=== PATIENT | female | born 1970 | race African-American/Black ===

== ENCOUNTER 2017-10-25 09:08 | Inpatient (IN) | payer MEDICARE, MEDICAID ==
[2017-10-25] MEDS ORDERED: Ondansetron HCl/PF 4 MG/2 ML Vial ONE ×2 (09:24→17:14)
[2017-10-25] MEDS ORDERED: CEFAZOLIN/Water 2 GM/20 ML SYRINGE SLOW IVP SCH ×2 (10:00→10:30)
[2017-10-25 10:01] LABS: ALT (SGPT) 26 U/L (8-55); AST (SGOT) 22 U/L (5-34); Albumin 4.2 g/dL (3.5-5.0); Alkaline Phosphatase 109 U/L (40-150); Anion Gap 12 mmol/L (10-20); BUN (Urea Nitrogen) 14 mg/dL (7.0-18.7); Bilirubin, Total 0.2 mg/dL (0.2-1.2); Calc. Creatinine Clearance 0 mL/min (70-130); Calcium 9.2 mg/dL (7.8-10.44); Carbon Dioxide 28 mmol/L (22-29); Chloride 102 mmol/L (98-107); Estimated GFR-MDRD 89; Globulin 3.9 g/dL (2.4-3.5); Glucose 117 mg/dL (70-105); Potassium 4.7 mmol/L (3.5-5.1); Protein, Total 8.1 g/dL (6.0-8.3); Sodium 137 mmol/L (136-145)
[2017-10-25] MEDS ORDERED: Hydrocortisone Sod Succ/PF 100 mg/2 ml Vial ONE (10:12)
[2017-10-25] MEDS ORDERED: HYDROmorphone 0.5 MG/0.5 ML SYRINGE ONE ×6 (10:15→18:04)
--- NOTE | 2017-10-25 10:23 | RAD ---
AP PELVIS: Indication: Fall with pelvic pain. Comparison: None. FINDINGS: No displaced pelvic fracture is evident. Visualized aspects of the proximal femurs are within normal limits. The right proximal femur is incompletely included within the field of view. IMPRESSION: No acute osseous abnormality. POS: [facility]
--- NOTE | 2017-10-25 10:27 | CT ---
CT BRAIN WITHOUT CONTRAST: Date: 10/25/17 HISTORY: Level II trauma. FINDINGS: No evidence of acute infarct, hemorrhage, midline shift, or abnormal extra-axial fluid collections ar e seen. The ventricular size is appropriate and the basilar cisterns are patent. The bony calvarium i s intact. The visualized paranasal sinuses and mastoid air cells are well aerated. There is mucosal t hickening and polyp/mucus retention cyst at the floor of the left maxillary sinus. IMPRESSION: No CT evidence of acute intracranial process. Findings called over the telephone to ER physician, Dr. Boston Hernández at 0956 hours. CODE CR. POS: [facility]
--- NOTE | 2017-10-25 10:28 | CT ---
CT CERVICAL SPINE WITH CORONAL AND SAGITALL REFORMATIONS: History: Level II trauma. Neck pain. FINDINGS: There are post op changes of anterior spinal fusion with plate and screws at C6-7 levels in good posi tion and alignment. No acute fracture or subluxation identified. Findings were discussed over the telephone with ER physician, Dr. Boston Chapman, at 9:59 a.m. POS: [facility]
--- NOTE | 2017-10-25 10:34 | RAD ---
TWO VIEWS OF THE RIGHT FORELEG: Indication: Tripped and fell. Comparison: None. FINDINGS: There is a spiral fracture involving the mid shaft of the right tibia with posterior displacement of the distal fracture fragment one-half shaft width. There is also right patellar rotation of the dista l fracture fragment in relationship to the proximal tibia approximately 90 degrees. There is also nguyễn e slight medial angulation of the distal fracture fragment at the fracture site. There is associated mildly displaced transverse fracture involving the midshaft of the fibula with displacement of the di stal fracture fragment laterally and posteriorly one-half shaft width. There is soft tissue prominenc e seen surrounding the fracture site. There is suggestion of some soft tissue gas along the anterior and lateral aspect of the right mid foreleg suspicious for an open injury. No additional acute fractu re is evident. IMPRESSION: Findings suspicious for open, mild to moderately displaced foreleg fracture. POS: [facility]
--- NOTE | 2017-10-25 10:56 | CON ---
DATE OF CONSULTATION: 10/25/2017 CONSULTING PHYSICIAN: Dr. Parth Stoll We were asked by the ER and Trauma to see the patient. HISTORY: She was in her normal state of health this morning when she was walking through her house, t ripped and sustained an open midshaft right tib-fib fracture. The patient is in significant pain. S he is quite anxious. She recalls the incident, did not hit her head or lose any consciousness. Curr ently, she has gotten 2 grams of Ancef at the ER. We are currently, about ready to splint her. She has good sensations in that right lower extremity. She does have multiple health issues. I spoke wi th Trauma regarding surgical intervention and they are okay with us going this afternoon. She did ea t at 7:00 a.m. this morning and she will be our third case this afternoon. PAST MEDICAL HISTORY: Positive for hypertension, some neurological disease. She has had a CVA and l upus, Raynaud's, osteoarthritis, neuropathy, knee pain. PAST SURGICAL HISTORY: Tubal ligation, back surgery, bilateral bunions and clavicle surgery. PSYCHIATRIC HISTORY: Depression. FAMILY HISTORY: Noncontributory. ALLERGIES: None. CURRENT MEDICATIONS: She takes Plaquenil, gabapentin, Valium, tramadol, prednisone, amlodipine, aspi rin. She is unsure if this is all her medications. We are trying to track down her medication list from her pharmacy. Trauma is working on that currently. REVIEW OF SYSTEMS: The patient denies any shortness of breath, chest pain. No bowel or bladder issu es. Her only complaint currently is the significant pain in the right lower extremity. PHYSICAL EXAMINATION: GENERAL: Well-nourished, well-developed, mildly obese female resting in bed in mild distress. Speec h clear. Answers questions appropriately. HEENT: Normal exam. NECK: Supple, trachea midline. EXTREMITIES: Upper extremities, full size, shape, symmetry, normal bulk and tone. Movements are equ al as are strengths. Left lower extremity without any abnormal findings. She does have a noted scar over her great toe region from bunion as she does on the left side also. Right lower extremity obvi ous opening to mid moore, it has been reduced by EMT transports. She has good sensations. DP, PT pul ses are intact. She is moving bilateral feet well. ASSESSMENT: 1. Multiple health issues. 2. Open right tibia fracture. PLAN: I spoke with patient. We plan on doing the tibial nail today. She has already gotten 2 grams of Ancef. I went over the risks and benefits of surgery. The patient was very panicked about talki ng about cardiac, blood clots, respiratory issues, but she understands the need to go forth with surg casimiro and she has given verbal authorization. We will again go over the risks and benefits of surgery prior to surgery, so she can feel a little more comfortable and have anesthesia talked to her. The lucy holman has been splinted by the emergency room. We will get her set up for surgery and get her posted in the OR. She has currently eaten at 7, but we will keep her n.p.o. and antibiotics on hold to the OR .
[2017-10-25 11:25] LABS: Bilirubin Negative (Negative); Blood, Urine Negative (Negative); Glucose, Urine (Dipstick) Negative (Negative); Leukocyte Negative (Negative); Nitrite Negative (Negative); Protein, Urine (Dipstick) Negative (Neg-Trace); Specific Gravity, Urine 1.025 (1.005-1.030); Urobilinogen 0.2 mg/dL (0.2-1.0)
[2017-10-25 11:28] LABS: Clarity Clear (Clear); Pregnancy Test - Urine (BHCG) Negative (Negative); Pregu Control Background? CLEAR/WHITE (CLR/WHITE); Pregu Control Bar Appear? YES (CONTROL BAR); Specific Gravity 1.025 (1.002-1.036)
[2017-10-25] MEDS ORDERED: Dextrose 5% in Water 1,000 ML IV PRN (11:48)
[2017-10-25] MEDS ORDERED: Ondansetron HCl/PF 4 MG/2 ML Vial IVP PRN ×2 (11:48→20:12)
[2017-10-25] MEDS ORDERED: Dextrose 50% Abboject 50 ML SYRINGE SLOW IVP PRN (11:48)
[2017-10-25 11:55] LABS: #Lymphocytes 1.2 thou/uL (1.20-3.40); #Monocytes 0.4 thou/uL (0.11-0.59); #Neutrophils 5.3 thou/uL (1.40-6.50); %Basophils 0.1 % (0.0-1.0); %Eosinophils 0.2 % (0.0-10.0); %Lymphocytes 16.9 % (21.0-51.0); %Monocytes 5.1 % (0.0-10.0); %Neutrophils 77.7 % (42.0-75.0); Hemoglobin 13.7 g/dL (12.0-16.0); Mean Corpuscular HGB CONC 31.2 g/dL (32.0-36.0); Mean Corpuscular Hemoglobin 29.8 pg (27.0-31.0); Mean Corpuscular Volume 95.5 fl (81.0-99.0); Mean Platelet Volume 9.5 fL (7.4-10.4); Platelet Count 198 thou/uL (130-400); RBC Distribution Width 13.4 % (11.5-14.5); Red Blood Cell (RBC) Count 4.61 mill/uL (4.20-5.40); White Blood Cell (WBC) Count 6.8 thou/uL (4.8-10.8)
[2017-10-25] MEDS ORDERED: Ketorolac Tromethamine 30 MG/ML VIAL ONE (12:41)
[2017-10-25] MEDS ORDERED: Ketorolac Tromethamine 30 MG/ML VIAL IVP PRN (12:59)
[2017-10-25 13:01] LABS: PTT 24.2 SEC (22.9-36.1); Prothrombin Time 12.9 SEC (12.0-14.7)
--- NOTE | 2017-10-25 14:11 | HP ---
DATE OF ADMISSION: 10/25/2017 REQUESTING PHYSICIAN: Dr. Hernández, ER. ADMITTING PHYSICIAN: Dr. Collins, Trauma. CONSULTING PHYSICIAN: Dr. Stoll, Orthopedics. HISTORY OF PRESENT ILLNESS: The patient is a 46-year-old female who was in her usual state of health this morning when she reports she was ambulating in her house when her feet got tangled up in some c ords going to an electric blanket. She then had a fall there on her living room floor. She immediat renita felt pain in her right lower leg. She was transported to the [facility] via EMS. Workup in the emergency department identified a right open midshaft tib/fib fracture. She had no other identified injuries. She complained of no other pain. She reports the pain is constant. She does not have any report of loss of sensation in her right lower extremity. Trauma Services was consulted for admission and management. Dr. Stoll, Orthopedics has been consulted for management of fracture. At the time of evaluation in the ED, she was also being evaluated by PA from Orthopedi c Surgery. She reports the pain is constant and exacerbated by movement. The pain is relieved sligh tly with administration of IV narcotic analgesia. PAST MEDICAL HISTORY: 1. Hypertension. 2. Lupus. 3. Raynaud's syndrome. 4. Osteoarthritis. 5. TIAs in 2016. 6. Peripheral neuropathy. PAST SURGICAL HISTORY: 1. Back surgery in 1998. 2. Left foot bunion surgery. 3. Bilateral tubal ligation. SOCIAL HISTORY: The patient denies alcohol, drug or tobacco use. ALLERGIES: No known drug allergies. CURRENT MEDICATIONS: Patient reported medications are: 1. Amlodipine 10 mg daily. 2. Prednisone 20 mg daily. 3. Chloroquine, unknown dosage. 4. Valium, unknown dosage. 5. Tramadol, unknown dosage. 6. Gabapentin, unknown dosage. LABORATORY STUDIES: Hematology: WBC 6.8, RBC 4.61, hemoglobin 13.7, hematocrit 44.1, platelets 198, 000. Chemistry: Sodium 137, potassium 4.7, chloride 102, carbon dioxide 28, BUN 14, creatinine 0.83 , glucose 117. DIAGNOSTIC IMAGING: Right tibia and fibula x-ray, open moderately displaced tib/fib fracture. EKG interpretation, normal sinus rhythm. REVIEW OF SYSTEMS: Constitutional: Negative for fever, chills, weight loss, general malaise. HEENT : No complaints. Cardiovascular: The patient reports Raynaud's syndrome. No chest pain, no palpit ations, no syncope. Respiratory: Denies cough, shortness of breath. Gastrointestinal: Denies abdo olman pain, constipation, nausea, vomiting or diarrhea. Musculoskeletal: Reports fall with right le g injury. Reports open right leg fracture. Skin: Denies rashes or injury. Neurologic: Denies diz ziness, focal weakness. Rheumatology: Reports treatment for systemic lupus. Hemo/lymphatic: Negat guillermo. Psychiatric: Denies anxiety or depression. PHYSICAL EXAMINATION: VITAL SIGNS: Blood pressure 145/96, pulse 85, respirations 18, pain 8/10, O2 sat 96% on room air. CONSTITUTIONAL: Well-developed, well-nourished female, lying on bed, in no acute distress. HEENT: Atraumatic, normocephalic. Trachea midline. No pain to posterior neck. RESPIRATORY: Bilateral breath sounds clear to auscultation. No respiratory distress. CARDIOVASCULAR: Regular rate and rhythm. Heart sounds normal. EKG with normal sinus rhythm. ABDOMEN: Soft, nontender, nondistended. No masses. Bowel sounds normal. EXTREMITIES: Bilateral upper extremities within normal limits. Left lower extremity within normal l imits. Cap refill brisk. Pulses 2+. Right lower extremity, mid shaft open fracture. 2+ pedal puls es. Cap refill brisk. No loss of sensation. NEUROLOGIC: GCS 15. Awake, alert, oriented x3. PSYCHIATRIC: Normal mood and affect. ASSESSMENT AND PLAN: 1. Status post ground level fall. 2. Right mid shaft open tib/fib fracture. 3. Acute traumatic pain. 4. History of lupus. 5. History of hypertension. 6. History of Raynaud's syndrome. PLAN: 1. Admit to surgical floor by Trauma Services. 2. Consult Orthopedics. Discussed with Orthopedics PA. Plan is to take patient to OR later today. 3. N.p.o. IV fluids. 4. IV analgesia for pain control. 5. PT, OT consult after OR with Orthopedic limitation. 6. Rehab referral will be made. 7. Chemical DVT prophylaxis when okay with Orthopedics. 8. PUD prophylaxis. 9. Nursing to confirm with outside pharmacy correct current medications. The patient was seen and examined with Dr. Collins, attending trauma surgeon, who agrees with the asses sment and plan.
[2017-10-25] MEDS: Sodium Chloride 0.9% 1,000 ML IV SCH ×2 (15:03→21:31)
[2017-10-25] MEDS ORDERED: Midazolam HCl 2 mg/2 ml Vial ONE (16:22)
[2017-10-25 16:24] VITALS: BMI 40.3
[2017-10-25] MEDS ORDERED: Propofol 200 MG/20 ML VIAL ONE (17:14)
[2017-10-25] MEDS ORDERED: Metoprolol Tartrate 5 MG/5 ML VIAL ONE ×2 (17:14→20:24)
[2017-10-25] MEDS ORDERED: Lidocaine 1% PF 5 ML VIAL ONE (17:14)
[2017-10-25] MEDS ORDERED: Fentanyl 100 MCG/2 ML VIAL ONE ×3 (18:06→20:39)
[2017-10-25] MEDS ORDERED: Ketamine 50 MG/ML VIAL ONE (18:25)
[2017-10-25] MEDS ORDERED: CEFAZOLIN/Water 2 GM/20 ML SYRINGE ONE (18:31)
[2017-10-25] MEDS: Acetaminophen 1,000 MG in Premix Bag 1 BAG IVPB SCH ×2 (18:32→23:36)
[2017-10-25] MEDS ORDERED: Neomycin-Polymyxin 1 ML AMP ONE (18:59)
[2017-10-25] MEDS ORDERED: Promethazine HCl 25 MG/ML VIAL SLOW IVP PRN (20:12)
[2017-10-25] MEDS ORDERED: Promethazine HCl 25 MG/ML VIAL IM PRN (20:12)
[2017-10-25] MEDS ORDERED: HYDROmorphone 2 MG/ML VIAL SLOW IVP PRN (20:12)
--- NOTE | 2017-10-25 20:25 | RAD ---
FRONTAL AND LATERAL INTRAOPERATIVE IMAGING OF RIGHT TIBIA AND FIBULA 10/25/17 HISTORY: Fracture status post ORIF. FINDINGS: Six intraoperative images are provided. Images demonstrate a nondisplaced fracture involving the mid shaft right fibula. A comminuted tibial fracture is present in the mid shaft/distal shaft region, tra versed by an intramedullary omar with distal and proximal interlocking screws. IMPRESSION: Fractures of the right tibia and fibula status post ORIF as above. POS: [facility]
[2017-10-25] MEDS ORDERED: Pregabalin 75 MG CAP PO SCH (21:00)
[2017-10-25] MEDS ORDERED: Gabapentin 300 MG CAP PO SCH (21:00)
[2017-10-25] MEDS ORDERED: traMADol HCl 50 MG TAB PO SCH (21:00)
--- NOTE | 2017-10-25 21:00 | OP ---
DATE OF OPERATION: 10/25/2017 PROCEDURE PERFORMED: 1. Right open tibia fracture, irrigation and debridement. 2. Right tibia intramedullary nail. PREOPERATIVE DIAGNOSIS: Right grade 2 open mid shaft tibia and fibula fracture. POSTOPERATIVE DIAGNOSIS: Right grade 2 open mid shaft tibia and fibula fracture. COMPLICATIONS: None. ESTIMATED BLOOD LOSS: Minimal. SURGEON: Orion Stoll M.D. ASSISTANT SALES CENTER MANAGER: Stan Garcia PA-C. IMPLANTS: Synthes tibial intramedullary nail size 8 x 345 mm. INDICATIONS: Ms. Benitez is a 46-year-old female who fell today. She sustained an open fracture of he r tibia and fibula of the right leg. She was indicated for irrigation and debridement with intramedu llary nail fixation of the tibia to restore anatomic alignment and promote healing. Risks have been reviewed in detail. She has elected to proceed with the operation. Risks to include infection, nerv e or vascular injury, nonunion, malunion, hardware failure and others. DESCRIPTION OF PROCEDURE: Ms. Benitez was identified in the preoperative holding area. Her correct ex tremity was marked. She was carried to the operating room. She was positioned supine. General anes thesia was induced. A multidisciplinary timeout was performed. The right lower extremity was preppe d and draped in sterile fashion. She was given intravenous antibiotics. At this point, we began with irrigation and debridement of open wound. She had a 4 cm V-shaped lacer ation over the anterior tibia. We dissected down through the subcutaneous tissues to the bony level. We exposed the bony edges. These were debrided. We then thoroughly irrigated the wound and bony e dges with copious lavage. Once we had a clean bed, we trimmed the skin edges back to healthy tissue . We then applied a reduction clamp across the fracture. At this point, we began preparation for intramedullary nail. An incision was made over the knee. We dissected down through the subcutaneous tissues to the patellar tendon. A small patellar split was made. We then inserted a guidewire proximally in the tibia. We have reamed the guidewire. We then placed the ball-tip guidewire from proximal to distal. At this point, we overreamed the guidewire up to a size 9.5 mm reamer. Next, we measured for a 345 mm nail. We then placed our tibial intramedul mariajose nail from proximal to distal. Two cross lock screws were placed proximally and two cross lock s crews were placed distally. This completed the operation. We took final x-ray images. We then thor oughly irrigated and closed with 0 Vicryl suture, 2-0 Vicryl suture and nylon for the skin. A steril e dressing was applied. The patient was taken to the recovery room.
[2017-10-25] MEDS: Diazepam 5 MG TAB PO SCH (21:30)
[2017-10-25] MEDS: Famotidine/PF 20 mg/2ml Vial SLOW IVP SCH (21:31)
[2017-10-25] MEDS: traMADol HCl 50 MG TAB PO SCH (23:35)
[2017-10-26] MEDS: CEFAZOLIN/Water 2 GM/20 ML SYRINGE SLOW IVP SCH ×3 (01:44→18:18)
[2017-10-26 04:29] LABS: #Eosinphils 0.1 thou/uL (0.0-0.7); #Lymphocytes 1.6 thou/uL (1.20-3.40); #Monocytes 0.7 thou/uL (0.11-0.59); #Neutrophils 4.9 thou/uL (1.40-6.50); %Basophils 0.1 % (0.0-1.0); %Eosinophils 1.8 % (0.0-10.0); %Monocytes 9.1 % (0.0-10.0); Hemoglobin 11.3 g/dL (12.0-16.0); Mean Corpuscular HGB CONC 32.3 g/dL (32.0-36.0); Mean Corpuscular Hemoglobin 30.9 pg (27.0-31.0); Mean Corpuscular Volume 95.7 fl (81.0-99.0); Mean Platelet Volume 8.6 fL (7.4-10.4); Platelet Count 253 thou/uL (130-400); RBC Distribution Width 13.2 % (11.5-14.5); Red Blood Cell (RBC) Count 3.65 mill/uL (4.20-5.40); White Blood Cell (WBC) Count 7.3 thou/uL (4.8-10.8)
[2017-10-26] MEDS: Acetaminophen 1,000 MG in Premix Bag 1 BAG IVPB SCH (05:35)
[2017-10-26] MEDS: traMADol HCl 50 MG TAB PO SCH (05:36)
[2017-10-26] MEDS: Sodium Chloride 0.9% 1,000 ML IV SCH ×2 (05:51→12:42)
[2017-10-26] MEDS ORDERED: Ketorolac Tromethamine 30 MG/ML VIAL IVP SCH (08:00)
[2017-10-26] MEDS ORDERED: traMADol HCl 50 MG TAB PO PRN (08:18)
[2017-10-26] MEDS: Diazepam 5 MG TAB PO SCH ×3 (08:28→20:49)
[2017-10-26] MEDS: predniSONE 20 MG TAB PO SCH (08:28)
[2017-10-26] MEDS: Lisinopril 10 MG TAB PO SCH (08:28)
[2017-10-26] MEDS: Amlodipine 10 MG TAB PO SCH (08:28)
[2017-10-26] MEDS: Famotidine/PF 20 mg/2ml Vial SLOW IVP SCH (08:29)
[2017-10-26] MEDS: Ibuprofen 800 MG TAB PO SCH ×2 (08:42→15:43)
[2017-10-26] MEDS ORDERED: Acetaminophen 500 MG TAB PO SCH (09:00)
[2017-10-26] MEDS ORDERED: HYDROcodone/Acetaminophen 10/325 mg Tablet PO PRN ×3 (09:08→09:32)
[2017-10-26] MEDS ORDERED: Acetaminophen 325 MG TAB PO PRN (10:42)
[2017-10-26] MEDS ORDERED: HYDROcodone/Acetaminophen 10/325 mg Tablet PO SCH (13:00)
[2017-10-26] MEDS: HYDROcodone/Acetaminophen 10/325 mg Tablet PO SCH ×2 (14:43→20:49)
[2017-10-26] MEDS: Pregabalin 75 MG CAP PO SCH ×2 (14:44→20:48)
--- NOTE | 2017-10-26 16:35 | PRG ---
DATE OF SERVICE: 10/26/2017 ATTENDING PHYSICIAN: Dr. Robert Collins. SUBJECTIVE: The patient is a 46-year-old female who suffered a ground level fall yesterday resulting in a right open tib/fib fracture. She was taken to the OR yesterday for open reduction internal fix ation as well as irrigation and debridement. She is currently stable on the floor this morning. Mercyi yolis reporting inadequate pain control, but now reporting improved pain control after adjusting her medications. OBJECTIVE: VITAL SIGNS: Blood pressure 132/86, pulse 92, temperature 98.2, respirations 20, O2 saturation 97% o n room air. GENERAL: Morbidly obese adult female, lying in bed, in no acute distress. HEENT: Normocephalic and atraumatic. RESPIRATORY: Her breath sounds are clear to auscultation bilaterally with normal effort. CARDIOVASCULAR: She has regular rate and rhythm. Normal S1 and S2. ABDOMEN: Her abdomen is soft, obese, and nontender. Bowel sounds are normal. EXTREMITIES: She is neurovascularly intact x4. Distal pulses 2+ bilaterally. NEUROLOGIC: Her GCS is 15 this morning. She is alert and oriented x3. LABORATORY DATA: Hematology: WBC 7.3, hemoglobin 11.3, hematocrit 35.0, platelets 253. Chemistry: Sodium 137, potassium 4.7, chloride 102, bicarbonate 28, BUN 14, creatinine 0.83, glucose 117. RADIOGRAPHIC FINDINGS: There are no radiographs to review today. ASSESSMENT: 1. Status post ground level fall. 2. Right midshaft open tib/fib fracture, status post open reduction internal fixation. 3. Acute traumatic pain. 4. History of lupus, present on admission. 5. History of hypertension, present on admission. 6. History of Raynaud's syndrome, present on admission. PLAN: 1. Continue to try to optimize her pain control and give other supportive care measures as needed. 2. The patient initially reports being very reluctant to go to rehabilitation. However, she is now more open to this after having a long discussion with her. She has not been evaluated at rehab and h as agreed on the location. A referral letter has been placed. This patient was seen and examined along with Dr. Robert Collins on rounds this morning, who agrees wi th this assessment and plan.
[2017-10-26] MEDS ORDERED: Enoxaparin Sodium 40 MG/0.4 ML SYRINGE SC SCH (19:00)
[2017-10-26] MEDS: Famotidine 20 MG TAB PO SCH (20:49)
[2017-10-27] MEDS: Ibuprofen 800 MG TAB PO SCH ×4 (02:45→22:38)
[2017-10-27] MEDS: CEFAZOLIN/Water 2 GM/20 ML SYRINGE SLOW IVP SCH ×3 (02:45→18:09)
[2017-10-27] MEDS: HYDROcodone/Acetaminophen 10/325 mg Tablet PO SCH ×6 (02:46→22:39)
[2017-10-27] MEDS: Famotidine 20 MG TAB PO SCH ×2 (08:15→20:48)
[2017-10-27] MEDS: Amlodipine 10 MG TAB PO SCH (08:15)
[2017-10-27] MEDS: Diazepam 5 MG TAB PO SCH ×3 (08:15→20:49)
[2017-10-27] MEDS: Pregabalin 75 MG CAP PO SCH ×3 (08:16→20:48)
[2017-10-27] MEDS: predniSONE 20 MG TAB PO SCH (08:16)
[2017-10-27] MEDS: Lisinopril 10 MG TAB PO SCH (08:16)
--- NOTE | 2017-10-27 15:03 | PRG ---
DATE OF SERVICE: 10/27/2017 ATTENDING PHYSICIAN: Robert Collins D.O. SUBJECTIVE: The patient is a 46-year-old female who had a ground level fall 2 days ago resulting in a right open tib/fib fracture. She is postoperative day # 2 status post ORIF and I&D of the right tibia. She is currently stable on the surgical floor. Pain has been moderately controlled; however, she does report having excessive pain intermittently throughout the day. OBJECTIVE: VITAL SIGNS: Temperature 98.9, pulse 111, respirations 16, O2 sat 98% on room air, blood pressure 134/90. CONSTITUTIONAL: Well-developed and well-nourished female lying in bed in no acute distress. PULMONARY: Bilateral breath sounds clear to auscultation. No respiratory distress. CARDIOVASCULAR: Regular rate and rhythm. Heart sounds normal. ABDOMEN: Soft, nontender, and nondistended. EXTREMITIES: Splint to right lower extremity. Otherwise, extremities, atraumatic. Neurovascularly intact all extremities. Cap refill brisk. NEUROLOGIC: GCS 15. Awake, alert, oriented x3. ASSESSMENT: 1. Status post ground level fall. 2. Right midshaft open tib/fib fracture. 3. Status post open reduction and internal fixation of right open tib/fib fracture. 4. Acute traumatic pain. 5. History of lupus, present on admission. 6. History of hypertension, present on admission. 7. History of Raynaud's present on admission. PLAN: 1. Adjust hydrocodone for scheduled hydrocodone q.4 hours rather than q.6 hours. 2. Continue to mobilize with physical and occupational therapy. 3. Case management following for discharge planning. Anticipate patient will be discharged to rehab. 4. Antibiotics per Orthopedic Service. 5. Lovenox for DVT prophylaxis. 6. Pepcid for PUD prophylaxis. The patient was seen and examined with Dr. Collins who agrees with the assessment and plan. [facility]
[2017-10-27] MEDS: Enoxaparin Sodium 30 MG/0.3 ML SYRINGE SC SCH (20:49)
--- NOTE | 2017-10-27 23:57 | PRG ---
DATE OF SERVICE: 10/27/2017 SUBJECTIVE: The patient is a 47-year-old female with a medical history, postop day #2 from ORIF of r ight lower leg. The patient does report some sharp pain in that lower leg otherwise. Prior to that, she said she was doing fairly well. Not much of an appetite at this time. OBJECTIVE: VITAL SIGNS: Reviewed. It has been noted that she does have some increased tachycardia in the night . Upon my assessment, heart rate was about 110, blood pressure was normotensive, and saturation was 97% on room air, and respiratory rate was nonlabored and 18. Physical exam is unchanged otherwise as stated in daily progress note. ASSESSMENT AND PLAN: Continue care as detailed in the daily progress note. Continue to monitor. We will reassess in the a.m. The patient is on Lovenox. Discharge disposition is pending.
[2017-10-28] MEDS: CEFAZOLIN/Water 2 GM/20 ML SYRINGE SLOW IVP SCH ×3 (01:03→17:11)
[2017-10-28] MEDS: HYDROcodone/Acetaminophen 10/325 mg Tablet PO SCH ×6 (02:48→22:17)
[2017-10-28] MEDS: Pregabalin 75 MG CAP PO SCH ×3 (08:33→22:17)
[2017-10-28] MEDS: Enoxaparin Sodium 30 MG/0.3 ML SYRINGE SC SCH ×2 (08:34→22:17)
[2017-10-28] MEDS: predniSONE 20 MG TAB PO SCH (08:35)
[2017-10-28] MEDS: Lisinopril 10 MG TAB PO SCH (08:35)
[2017-10-28] MEDS: Famotidine 20 MG TAB PO SCH ×2 (08:35→22:16)
[2017-10-28] MEDS: Diazepam 5 MG TAB PO SCH ×3 (08:35→22:17)
[2017-10-28] MEDS: Ibuprofen 800 MG TAB PO SCH ×3 (08:35→22:16)
[2017-10-28] MEDS: Amlodipine 10 MG TAB PO SCH (08:35)
--- NOTE | 2017-10-28 13:38 | PRG ---
DATE OF SERVICE: 10/28/2017 ATTENDING PHYSICIAN: Robert Collins D.O. SUBJECTIVE: The patient is a 46-year-old female who had a ground level fall 3 days ago resulting in a right open tib-fib fracture. She is postoperative day #3 status post ORIF and I&D of the right tib ia. She is currently stable on the surgical floor. Pain medication was adjusted yesterday. Hydroco done was increased to q.4 hours rather than q.6 hours. This seems to have improved patient's pain. We will continue to check her during activity today to ensure that pain is well controlled. OBJECTIVE: VITAL SIGNS: Temperature 97.5, pulse 82, respirations 18, O2 sat 97% room air, blood pressure 103/71 . CONSTITUTIONAL: Well-developed, well-nourished female lying in bed in no acute distress. PULMONARY: Bilateral breath sounds clear to auscultation. No respiratory distress. CARDIOVASCULAR: Regular rate and rhythm. Heart sounds normal. ABDOMEN: Soft, nontender, and nondistended. EXTREMITIES: Splint to right lower extremity. Otherwise, extremities are atraumatic. Neurovascular ly intact all extremities. Cap refill brisk. NEUROLOGIC: GCS of 15. Awake, alert, and oriented x3. ASSESSMENT: 1. Status post ground level fall. 2. Right midshaft open tib-fib fracture. 3. Status post open reduction and internal fixation and incision and drainage of right open tib-fib fracture. 4. Acute traumatic pain. 5. History of lupus, present on admission. 6. History of hypertension, present on admission. 7. History of Raynaud's, present on admission. PLAN: 1. Hydrocodone adjusted yesterday to q.4 hours rather than q.6 hours. We will continue to monitor a nd make adjustments as necessary. 2. Continue to mobilize with physical and occupational therapy. 3. Case management following for discharge planning. Anticipate patient will be discharged to rehab in the next 1-2 days. 4. Lovenox for DVT prophylaxis. 6. Pepcid for PUD prophylaxis. The patient was seen and examined with Dr. Collins who agrees with the assessment and plan.
--- NOTE | 2017-10-29 00:53 | DIS ---
REASON FOR HOSPITALIZATION: Ground level fall with right lower extremity fracture. HOSPITAL DIAGNOSIS: Right grade 2 open midshaft tibia and fibula fracture. PROCEDURES: 1. Right open tibia fracture, irrigation and debridement. 2. Right tibia IM nail. DATE OF PROCEDURE: 10/25/2017. SURGEON: Dr. Orion Stoll. DISCHARGE CONDITION: Good. DISPOSITION: [facility]. DISCHARGE MEDICATIONS: Patient may resume all home medications. She will continue analgesia and DVT prophylaxis as ordered in the hospital. ACTIVITY ORDERS: Weightbearing as tolerated. Right lower extremity is toe- touch weightbearing only. THERAPY ORDERS: Physical and occupational therapy. DIET: Regular. FOLLOWUP: Follow up with Dr. Stoll in 2 weeks. BRIEF HISTORY OF HOSPITALIZATION: Ms. Benitez is a 47-year-old female, who was in her usual state of health when she was in her home and tripped on a cord falling into her floor. She immediately had pain in her right lower extremity. She noted an open fracture and summoned EMS. She was transported to [place] emergency department, where open tib/fib fracture was identified. She was admitted to the hospital by Trauma services. Dr. Orion Stoll, orthopedic, was consulted and took the patient to the OR for fixation of fracture. Postoperatively, she was managed on the surgical floor. She had no postoperative complications. She was able to be transitioned from IV to oral only analgesia. She was evaluated by [facility]. Mosher was discontinued on postoperative day #2. She was discharged to [facility] once acceptance was gained. She is to follow up with Dr. Stoll in 2 weeks. She may follow up with Trauma services as needed. She may resume all home medications. The patient was seen and examined with Dr. Collins, who agrees with the assessment and plan. [facility]
[2017-10-29] MEDS: HYDROcodone/Acetaminophen 10/325 mg Tablet PO SCH ×3 (03:13→11:17)
[2017-10-29] MEDS: CEFAZOLIN/Water 2 GM/20 ML SYRINGE SLOW IVP SCH (03:14)
--- NOTE | 2017-10-29 06:07 | PRG ---
DATE OF SERVICE: 10/28/2017 SUBJECTIVE: This is a 47-year-old female. She is pending discharge. At this time, she has had peg l movement, but not voided since removal of Mosher. We are awaiting to clear for discharge to [facility] rehab. OBJECTIVE: VITAL SIGNS: Reviewed, vital signs otherwise have been stable. Physical exam unchanged. ASSESSMENT AND PLAN: We will continue to await voiding trail, discharge pending rehab. We will reev aluate in a.m.
[2017-10-29 08:53] VITALS: TEMP 97.6
[2017-10-29] MEDS: Pregabalin 75 MG CAP PO SCH (09:02)
[2017-10-29] MEDS: Diazepam 5 MG TAB PO SCH (09:02)
[2017-10-29] MEDS: Ibuprofen 800 MG TAB PO SCH (09:03)
[2017-10-29] MEDS: predniSONE 20 MG TAB PO SCH (09:03)
[2017-10-29] MEDS: Enoxaparin Sodium 30 MG/0.3 ML SYRINGE SC SCH (09:03)
[2017-10-29] MEDS: Famotidine 20 MG TAB PO SCH (09:03)
[2017-10-29 12:16] VITALS: BP 101/70
[2017-10-29] MEDS: Amlodipine 10 MG TAB PO SCH (12:25)
[2017-10-29] MEDS: Lisinopril 10 MG TAB PO SCH (12:25)
--- NOTE | 2017-10-30 04:46 | DIS ---
DATE OF ADMISSION: 10/25/2017 DATE OF DISCHARGE: 10/29/2017 HOSPITAL COURSE: The patient was initially intended to discharge late yesterday evening. Her Mosher catheter was discontinued, yet the patient was unable to void. Her discharge was held overnight. Sh alena was still unable to void and Mosher catheter was replaced this a.m. This has been conveyed to the r ab liaison who reports that patient may transfer to their facility with a Mosher catheter. The ruperto ent will be discharged today to rehabilitation. The patient has remained stable overnight. There have been no changes in her condition other than as stated above. Pain is well controlled. She will be discharged to rehab and follow up with Dr. Lamine pop. For all other details of hospitalization, please refer to discharge summary that was dictated on 10/28/2017. The patient was seen and examined on morning rounds with Dr. Collins who agrees with the assessment and plan for discharge.
== END 2017-10-29 12:23 | DRG 493 ==
LOC: ERS 09:08 → SURG A 11:48
PROVIDERS: ADMIT Surgery; ATTEND Surgery
PROC: 0QBG0ZZ Excision of Right Tibia, Open Approach (ICD-10-PCS; principal; 2017-10-25)
PROC: 0QSG06Z Reposition Right Tibia with Intramedullary Internal Fixation Device, Open Approach (ICD-10-PCS; 2017-10-25)
DX: S82.291B Other fracture of shaft of right tibia, initial encounter for open fracture type I or II (principal); Z68.41 Body mass index [BMI] 40.0-44.9, adult; M32.9 Systemic lupus erythematosus, unspecified; E66.01 Morbid (severe) obesity due to excess calories; G62.9 Polyneuropathy, unspecified; S82.491B Other fracture of shaft of right fibula, initial encounter for open fracture type I or II; I10 Essential (primary) hypertension; I73.00 Raynaud's syndrome without gangrene; M19.90 Unspecified osteoarthritis, unspecified site; Z86.73 Personal history of transient ischemic attack (TIA), and cerebral infarction without residual deficits; G89.11 Acute pain due to trauma; W01.0XXA Fall on same level from slipping, tripping and stumbling without subsequent striking against object, initial encounter; Y92.019 Unspecified place in single-family (private) house as the place of occurrence of the external cause; F32.9 Major depressive disorder, single episode, unspecified; Z23 Encounter for immunization
CPT/HCPCS: 29505; 36415; 51702; 70450; 72125; 72170; 76001; 80053; 81003; 81025; 85025; 85610; 85730; 86850; 86900; 86901; 93005; 96361; 96374; 96375; C1713; C1769; G0390; G8978-GP-CM; G8979-GP-CL; G8987-GO-CL; G8988-GO-CJ; J0131; J1170; J1650; J1720; J1885; J2001; J2250; J2270; J2405; J2704; J3010; J7506; S0028

== ENCOUNTER 2018-02-25 09:39 | Inpatient (IN) | payer MEDICARE, MEDICAID ==
[2018-02-25] MEDS ORDERED: CEFAZOLIN/Water 2 GM/20 ML SYRINGE ONE (09:54)
[2018-02-25] MEDS ORDERED: Dexamethasone 4 mg/ml Vial ONE (10:55)
[2018-02-25] MEDS ORDERED: Fentanyl 100 MCG/2 ML VIAL ONE ×2 (10:55→12:08)
[2018-02-25] MEDS ORDERED: Midazolam HCl 2 mg/2 ml Vial ONE (10:55)
[2018-02-25] MEDS ORDERED: Bupivacaine HCl 0.5%/Epinephrine 1:200,000/PF 30 ml Vial ONE (12:24)
[2018-02-25] MEDS ORDERED: traMADol HCl 50 MG TAB PO PRN (13:52)
[2018-02-25] MEDS ORDERED: HYDROcodone/Acetaminophen 7.5/325 mg Tablet PO PRN (13:52)
[2018-02-25] MEDS ORDERED: Fentanyl 100 MCG/2 ML VIAL SLOW IVP PRN (13:54)
[2018-02-25] MEDS ORDERED: Ondansetron HCl/PF 4 MG/2 ML Vial IV PRN (13:54)
[2018-02-25] MEDS ORDERED: Communication Order-Pharmacy FS PRN (14:00)
--- NOTE | 2018-02-25 14:13 | OP ---
DATE OPERATION: 02/25/2018 PROCEDURE: Open reduction of patellar fracture with excision of inferior pole and advancement of pat ellar tendon. PREOPERATIVE DIAGNOSIS: Nonunion of the patellar fracture. POSTOPERATIVE DIAGNOSIS: Nonunion of the patellar fracture. COMPLICATIONS: None. ESTIMATED BLOOD LOSS: Minimal. SURGEON: Orion Stoll M.D. ANESTHESIA: General plus regional. IMPLANTS: #5 Ethibond suture. INDICATIONS: Ms. Benitez is a 47-year-old female who has fallen several times. She fractured her landeros lla. This was gone on to nonunion and she has had further displacement after a second fall. She is not doing well with conservative treatment. She has elected at this point to undergo surgical interv ention. Goal of surgery is to restore function of the knee and promote healing. She is aware of ris ks and benefits and wants to proceed. Surgical options are open reduction and fixation of the patell ar fragments versus excision of the inferior fragments and patellar tendon advancement. DESCRIPTION OF PROCEDURE: Ms. Benitez was identified in the preoperative holding area. Her correct ex tremity was marked. She was carried to the operating room. She was positioned supine. General anes thesia was induced. A multidisciplinary timeout was performed. The left lower extremity was prepped and draped in sterile fashion. At this point, we proceeded with anterior approach to the knee. We dissected down through the subcut aneous tissues to the patella. There was obvious palpable motion at the patellar fracture. We incis ed the patellar retinaculum over the patella. We then exposed the underlying fracture. This was mob ilized with an osteotome. At this point, we examined the inferior pole fragment carefully. This was a small fragment and somewhat sclerotic in appearance. This did not seem to have a good bone healin g potential. We had elected to excise this at this point. This was excised leaving behind the harrison lar tendon tissue. Next, at this point, we drilled multiple holes in the superior pole of the patell a getting a bleeding bony surface. We then drilled 3 holes through the patella and passed #3 Ethibon d sutures through these drill holes. These were passed through the patellar tendon in a [place] fashi on in a locking stitch. At this point, the patellar tendon was reduced up to the bone using these Et hibond sutures. These were then tied over the patella superiorly. This restored the relationship of the patellar tendon to the patella. We then repaired the retinaculum with a #2 Vicryl suture follow ed by 2-0 Vicryl suture and skin closure. At this point, we applied a sterile dressing and a splint. The patient was taken to the recovery room in good condition without complication.
[2018-02-25] MEDS ORDERED: Zolpidem Tartrate 5 MG TAB PO PRN (14:29)
[2018-02-25] MEDS ORDERED: Ondansetron HCl/PF 4 MG/2 ML Vial ONE (14:47)
[2018-02-25] MEDS ORDERED: Lidocaine 1% PF 5 ML VIAL ONE (14:47)
[2018-02-25] MEDS ORDERED: Labetalol 100 MG/20 ML MDV ONE (14:47)
[2018-02-25] MEDS ORDERED: Ketorolac Tromethamine 30 MG/ML VIAL ONE (14:47)
[2018-02-25] MEDS ORDERED: PROPOFOL 200 MG/20 ML VIAL ONE (14:47)
[2018-02-25 16:12] VITALS: BMI 40.4
[2018-02-25] MEDS: Ketorolac Tromethamine 30 MG/ML VIAL IVP SCH ×2 (17:18→23:06)
[2018-02-25] MEDS: Gabapentin 300 MG CAP PO SCH (20:02)
[2018-02-25] MEDS: CEFAZOLIN/Water 2 GM/20 ML SYRINGE SLOW IVP SCH (20:03)
[2018-02-25] MEDS: traMADol HCl 50 MG TAB PO PRN (21:30)
[2018-02-25] MEDS: HYDROcodone/Acetaminophen 7.5/325 mg Tablet PO PRN (23:16)
[2018-02-26] MEDS: CEFAZOLIN/Water 2 GM/20 ML SYRINGE SLOW IVP SCH (03:29)
[2018-02-26] MEDS: traMADol HCl 50 MG TAB PO PRN ×2 (03:34→13:08)
[2018-02-26] MEDS: Ketorolac Tromethamine 30 MG/ML VIAL IVP SCH ×3 (05:34→17:55)
[2018-02-26] MEDS: Lisinopril 10 MG TAB PO SCH (08:53)
[2018-02-26] MEDS: predniSONE 20 MG TAB PO SCH (08:54)
[2018-02-26] MEDS: Enoxaparin Sodium 40 MG/0.4 ML SYRINGE SC SCH (08:54)
[2018-02-26] MEDS: Amlodipine 10 MG TAB PO SCH (08:54)
[2018-02-26] MEDS: Diazepam 5 MG TAB PO SCH ×3 (08:55→20:45)
[2018-02-26] MEDS: HYDROcodone/Acetaminophen 7.5/325 mg Tablet PO PRN ×3 (08:59→21:12)
[2018-02-26] MEDS ORDERED: [UNRECOGNIZED DRUG - OTHER] PO SCH (09:00)
[2018-02-26] MEDS ORDERED: Famotidine 20 MG TAB PO PRN (09:00)
[2018-02-26] MEDS: Gabapentin 300 MG CAP PO SCH (20:45)
[2018-02-27] MEDS: HYDROcodone/Acetaminophen 7.5/325 mg Tablet PO PRN (04:03)
[2018-02-27 07:46] VITALS: TEMP 98.2
[2018-02-27 08:12] VITALS: BP 101/68
[2018-02-27] MEDS ORDERED: traMADol HCl 50 MG TAB PO PRN ×2 (08:19)
[2018-02-27] MEDS ORDERED: HYDROcodone/Acetaminophen 7.5/325 mg Tablet PO PRN ×2 (08:19)
[2018-02-27] MEDS ORDERED: Calcium Carbonate 500 MG ChewTAB PO PRN (08:20)
[2018-02-27] MEDS: Amlodipine 10 MG TAB PO SCH (08:58)
[2018-02-27] MEDS: Enoxaparin Sodium 40 MG/0.4 ML SYRINGE SC SCH (08:59)
[2018-02-27] MEDS: Diazepam 5 MG TAB PO SCH (08:59)
[2018-02-27] MEDS: Lisinopril 10 MG TAB PO SCH (09:00)
[2018-02-27] MEDS: predniSONE 20 MG TAB PO SCH (09:02)
[2018-02-27] MEDS ORDERED: Aspirin 81 mg Enteric Coated Tablet PO SCH (21:00)
== END 2018-02-27 11:30 | DRG 517 ==
LOC: SDC 09:39 → SURG B 15:15
PROVIDERS: ADMIT Orthopaedic Surgery; ATTEND Orthopaedic Surgery
PROC: 0QSF04Z Reposition Left Patella with Internal Fixation Device, Open Approach (ICD-10-PCS; principal; 2018-02-25)
DX: S82.002A Unspecified fracture of left patella, initial encounter for closed fracture (principal); W19.XXXA Unspecified fall, initial encounter; I10 Essential (primary) hypertension; M32.9 Systemic lupus erythematosus, unspecified
CPT/HCPCS: 36416; 96374; C1769; G8978-GP-CM; G8979-GP-CK; G8987-GO-CL; G8988-GO-CJ; J0670; J1100; J1650; J1885; J2001; J2250; J2405; J2704; J3010; J7506

== ENCOUNTER 2018-03-27 08:34 | Inpatient (IN) | payer MEDICARE, MEDICAID ==
--- NOTE | 2018-03-27 09:20 | RAD ---
LEFT KNEE 4 VIEWS: Date: 03/27/18 HISTORY: 46-year-old female with history of trauma, fall, with left knee pain. Had surgery [address] Stoll. FINDINGS: There appears to have been resection of the lower portion of the patella. The patella now lies in a v casimiro abnormal superior position, certainly concerning for the possibility of patellar tendon rupture. There is marked soft tissue swelling over the prepatellar and superficial infrapatellar region. Visua lized femur, tibia, and fibula appear intact. IMPRESSION: Evidence for resection of the lower portion of the patella with a very abnormal high-riding patella w ith marked anterior prepatellar and superficial infrapatellar swelling and fat stranding, evidence fo r patellar tendon rupture. No prior radiographs available for comparison. POS: Horacio
[2018-03-27 10:32] LABS: #Eosinphils 0.1 thou/uL (0.0-0.7); #Lymphocytes 2.1 thou/uL (1.20-3.40); #Monocytes 0.6 thou/uL (0.11-0.59); #Neutrophils 3.3 thou/uL (1.40-6.50); %Basophils 0.5 % (0.0-1.0); %Eosinophils 2.1 % (0.0-10.0); %Lymphocytes 34.4 % (21.0-51.0); %Monocytes 9.7 % (0.0-10.0); %Neutrophils 53.3 % (42.0-75.0); Hemoglobin 11.1 g/dL (12.0-16.0); Mean Corpuscular Hemoglobin 30.1 pg (27.0-31.0); Mean Platelet Volume 8.2 fL (7.4-10.4); Platelet Count 263 thou/uL (130-400); RBC Distribution Width 14.2 % (11.5-14.5); Red Blood Cell (RBC) Count 3.68 mill/uL (4.20-5.40); White Blood Cell (WBC) Count 6.2 thou/uL (4.8-10.8)
[2018-03-27 10:53] LABS: ALT (SGPT) 10 U/L (8-55); AST (SGOT) 11 U/L (5-34); Albumin 3.6 g/dL (3.5-5.0); Alkaline Phosphatase 110 U/L (40-150); Anion Gap 14 mmol/L (10-20); BUN (Urea Nitrogen) 15 mg/dL (7.0-18.7); Bilirubin, Total 0.4 mg/dL (0.2-1.2); Calc. Creatinine Clearance 0 mL/min (70-130); Calcium 8.6 mg/dL (7.8-10.44); Carbon Dioxide 23 mmol/L (22-29); Chloride 107 mmol/L (98-107); Estimated GFR-MDRD Greater than 90; Globulin 3.2 g/dL (2.4-3.5); Glucose 74 mg/dL (70-105); Potassium 3.1 mmol/L (3.5-5.1); Protein, Total 6.8 g/dL (6.0-8.3); Sodium 141 mmol/L (136-145)
[2018-03-27 11:03] LABS: Prothrombin Time 13.7 SEC (12.0-14.7)
[2018-03-27] MEDS ORDERED: Fentanyl 100 MCG/2 ML VIAL ONE (11:57)
[2018-03-27] MEDS ORDERED: Milk Of Magnesia 30 ML UDCUP PO PRN (12:05)
[2018-03-27] MEDS ORDERED: Fentanyl 100 MCG/2 ML VIAL SLOW IVP PRN (12:05)
[2018-03-27] MEDS ORDERED: Communication Order-Pharmacy FS SCH (12:15)
[2018-03-27] MEDS ORDERED: Sodium Chloride 0.9% 1,000 ML IV SCH (13:33)
[2018-03-27] MEDS ORDERED: Ondansetron ODT 4 MG TAB SL PRN (13:33)
[2018-03-27 14:34] VITALS: BMI 40.1
[2018-03-27] MEDS: Ketorolac Tromethamine 30 MG/ML VIAL IVP SCH (17:34)
[2018-03-27] MEDS: Diazepam 5 MG TAB PO SCH (20:21)
[2018-03-27] MEDS: Famotidine 20 MG TAB PO SCH (20:21)
[2018-03-27] MEDS: Gabapentin 300 MG CAP PO SCH (22:08)
--- NOTE | 2018-03-27 23:26 | HP ---
DATE OF ADMISSION: 03/27/2018 CHIEF COMPLAINT: Left knee pain. HISTORY OF PRESENT ILLNESS: Ms. Benitez is a 47-year-old female who has had multiple falls approximate ly 10 over the last several months. She fell last week and had rib fractures. Of note, I have treat ed her in the past for a patellar fracture. She was initially treated nonoperatively; however, after for subsequent falls. She had a displaced patellar fracture with comminution. She eventually went to surgery for an inferior pole of the patella excision and patellar tendon advancement. This was ap proximately 1 month ago. Today when she fell she felt a tearing or popping sensation at the knee and was unable to bear weight. Repeat x-rays today have shown high riding patella, which is consistent with possible patellar tendon rupture. Her wound has remained intact. She has not been wearing her knee immobilizer as candelaria atkinson. She is living independently and has no assistance at home. She is currently having pain in the k nee, she denies other pain. PAST MEDICAL HISTORY: Consistent of cerebrovascular accident in 2016, hypertension, lupus, Raynaud s yndrome, osteoarthritis, neuropathy on chronic steroids. PAST SURGICAL HISTORY: Tubal ligation, previous lumbar back surgery, previous clavicle, ORIF, previo us left knee patellar surgery with patellar tendon advancement, previous bunionectomy. PSYCHIATRIC HISTORY: Includes depression. SOCIAL HISTORY: The patient denies alcohol, tobacco, or drug use. She lives alone. FAMILY MEDICAL HISTORY: Noncontributory. ALLERGIES: No known drug allergies. REVIEW OF SYSTEMS: Positive for left knee pain as per HPI. PHYSICAL EXAMINATION: VITAL SIGNS: Blood pressure is 104/79, pulse is 77, respiratory 15, temperature is 97.6, 95% on room air. GENERAL: She is sitting with head off bed elevated. Alert, talkative, no apparent distress. HEENT: Normocephalic, atraumatic. RESPIRATORY: Breathing comfortably. ABDOMEN: Soft, nontender, nondistended. MUSCULOSKELETAL: The patient's left leg has a healed surgical wound anteriorly. She has an effusion and swelling of the knee. She is unable to do a straight leg raise. She is able to flex and extend the foot and ankle. No warmth. IMAGES: Left knee x-rays demonstrate superior pole of the patella, which is high riding in relations hip to the tibial tubercle. This is consistent with a patellar tendon rupture. IMPRESSION: Left patellar tendon rupture with history of multiple falls and previous patellar fractu re. PLAN: At this point, I will need to bring the patient into the hospital. She will be admitted for p ain control and preparation for surgery. I will plan for patella tendon repair to be done tomorrow. I will need to reinforce this significantly given her noncompliance with bracing and the fact that s he has so prone to falling. I will put her in a cylinder cast. I hopefully will be able to arrange for her to go to a [facility] facility until she is healed. She is aware of this plan and wants to proceed. She is aware of risks. Risks to include infection, further complication of healing and others.
[2018-03-28] MEDS: Ketorolac Tromethamine 30 MG/ML VIAL IVP SCH ×4 (00:31→18:12)
[2018-03-28] MEDS: Famotidine 20 MG TAB PO SCH ×2 (07:57→20:44)
[2018-03-28] MEDS: Lisinopril 10 MG TAB PO SCH (07:57)
[2018-03-28] MEDS: Diazepam 5 MG TAB PO SCH ×3 (07:57→20:44)
[2018-03-28] MEDS: predniSONE 20 MG TAB PO SCH (07:58)
[2018-03-28] MEDS: Amlodipine 10 MG TAB PO SCH (07:58)
[2018-03-28] MEDS ORDERED: [UNRECOGNIZED DRUG - OTHER] PO SCH (09:00)
[2018-03-28] MEDS ORDERED: CEFAZOLIN/Water 2 GM/20 ML SYRINGE SLOW IVP SCH (12:00)
[2018-03-28] MEDS ORDERED: Bupivacaine HCl 0.5%/Epinephrine 1:200,000/PF 30 ml Vial ONE (13:00)
[2018-03-28] MEDS ORDERED: Fentanyl 100 MCG/2 ML VIAL ONE ×3 (13:04→15:56)
[2018-03-28] MEDS ORDERED: Dexamethasone 4 mg/ml Vial ONE (13:04)
[2018-03-28] MEDS ORDERED: Midazolam HCl 2 mg/2 ml Vial ONE (13:04)
[2018-03-28] MEDS ORDERED: CEFAZOLIN/Water 2 GM/20 ML SYRINGE ONE (13:09)
[2018-03-28] MEDS ORDERED: Hydrocortisone Sod Succ/PF 100 mg/2 ml Vial ONE (14:03)
[2018-03-28] MEDS ORDERED: PROPOFOL 200 MG/20 ML VIAL ONE (14:03)
[2018-03-28] MEDS ORDERED: Lidocaine 1% PF 5 ML VIAL ONE (14:03)
[2018-03-28] MEDS ORDERED: Ondansetron HCl/PF 4 MG/2 ML Vial IVP PRN (15:11)
[2018-03-28] MEDS ORDERED: Promethazine HCl 25 MG/ML VIAL IM PRN (15:11)
[2018-03-28] MEDS ORDERED: Promethazine HCl 25 MG/ML VIAL SLOW IVP PRN (15:11)
--- NOTE | 2018-03-28 19:44 | OP ---
DATE OF OPERATION: 03/28/2018 PROCEDURE PERFORMED: 1. Open repair of left patellar tendon. 2. Long-leg cast placement. PREOPERATIVE DIAGNOSIS: Rupture of left patellar tendon. POSTOPERATIVE DIAGNOSIS: Rupture of left patellar tendon. COMPLICATIONS: None. ESTIMATED BLOOD LOSS: Minimal. SURGEON: Orion Stoll MD PATENT LITIGATION ASSOCIATE: Opal Chew PA-C IMPLANTS: Ethibond suture and mersilene tape was used. INDICATIONS: Ms. Benitez is a 47-year-old female who has fallen multiple times in the last several mon ths. She sustained a patellar fracture that eventually required surgery. She has fallen again and r e-ruptured her patellar tendon. She has been indicated for patellar tendon repair and cast placement to hopefully promote healing at this point. Risks are extensive and have been reviewed in detail. She is aware of surgical risk. DESCRIPTION OF PROCEDURE: Ms. Benitez was identified in the preoperative holding area. Her correct ex tremity was marked. She was carried to the operating room. She was positioned supine. General anes thesia was induced. A multidisciplinary timeout was performed. The left lower extremity was prepped and draped in sterile fashion. We began the procedure with anterior incision over the knee. We dissected down through the subcutane ous tissues to the fascia level. We encountered the ruptured patellar tendon at the inferior pole of the patella. There was significant hematoma and torn tissue. This was debrided sharply. We remove d the hematoma. We exposed the medial and lateral patellar retinaculum. At this point, we used #5 E thibond suture to place Clay sutures up and down the patellar tendon. Four sutures were placed. T hese allowed strong fixation and hold onto the patellar tendon. At this point, these were brought th rough the patella through drill holes using a Skimo TV suture passer. All sutures were pulled up thro ugh the patella. The patella was reduced back into its anatomic position with the patellar tendon. This relationship was maintained by tying the sutures into position. At this point, we passed a mersilene tape. A drill hole was made in the tibial tubercle. We then pa ssed our tape through the drill hole. This was taken above the patella in the suprapatellar tissues. The knee was flexed to 45 degrees and the mersilene tape was tied into this isometric-type position . At this point, again we thoroughly irrigated with copious lavage. We then closed the retinaculum with #2 Vicryl suture followed by 0 Vicryl, 2-0 Vicryl, and nylon for the skin. At this point, a sterile dressing was placed. We then placed the patient in a cylinder cast, which w as well padded and made of fiberglass rolls. She was then taken to the recovery room in good conditi on. There were no complications.
[2018-03-28] MEDS: Gabapentin 300 MG CAP PO SCH (20:45)
[2018-03-28] MEDS: HYDROcodone/Acetaminophen 10/325 mg Tablet PO PRN (20:49)
[2018-03-28] MEDS: CEFAZOLIN/Water 2 GM/20 ML SYRINGE SLOW IVP SCH (22:35)
[2018-03-29] MEDS: HYDROcodone/Acetaminophen 10/325 mg Tablet PO PRN ×3 (05:24→20:54)
[2018-03-29] MEDS: CEFAZOLIN/Water 2 GM/20 ML SYRINGE SLOW IVP SCH (05:26)
[2018-03-29] MEDS: Diazepam 5 MG TAB PO SCH ×3 (08:23→20:55)
[2018-03-29] MEDS: predniSONE 20 MG TAB PO SCH (08:23)
[2018-03-29] MEDS: Lisinopril 10 MG TAB PO SCH (08:23)
[2018-03-29] MEDS: Amlodipine 10 MG TAB PO SCH (08:23)
[2018-03-29] MEDS: Famotidine 20 MG TAB PO SCH ×2 (08:23→20:56)
[2018-03-29] MEDS: Enoxaparin Sodium 40 MG/0.4 ML SYRINGE SC SCH (08:24)
[2018-03-29] MEDS: traMADol HCl 50 MG TAB PO PRN (11:52)
[2018-03-29] MEDS: Gabapentin 300 MG CAP PO SCH (20:56)
[2018-03-29] MEDS: Zolpidem Tartrate 5 MG TAB PO PRN (23:10)
[2018-03-30] MEDS: HYDROcodone/Acetaminophen 10/325 mg Tablet PO PRN ×5 (02:07→21:09)
[2018-03-30] MEDS: Amlodipine 10 MG TAB PO SCH (08:36)
[2018-03-30] MEDS: Diazepam 5 MG TAB PO SCH ×3 (08:36→21:11)
[2018-03-30] MEDS: Famotidine 20 MG TAB PO SCH ×2 (08:36→21:10)
[2018-03-30] MEDS: predniSONE 20 MG TAB PO SCH (08:36)
[2018-03-30] MEDS: Enoxaparin Sodium 40 MG/0.4 ML SYRINGE SC SCH (08:38)
[2018-03-30] MEDS: Lisinopril 10 MG TAB PO SCH (08:38)
--- NOTE | 2018-03-30 12:52 | CON ---
DATE OF SERVICE: 03/30/2018 SUBJECTIVE: The patient is doing well. Pain is controlled. She has been up mobilizing with physica l therapy. She is awaiting on a rehabilitation bed to open. She is having some discomfort around he r heel related to her cast. This is only present when she is upright, but it is causing her discomfo rt and limiting her weightbearing. PHYSICAL EXAMINATION: VITAL SIGNS: Stable. She is afebrile, normotensive. GENERAL: Alert and oriented, in no apparent distress. RESPIRATORY: Breathing comfortably. ABDOMEN: Soft, nontender, nondistended. MUSCULOSKELETAL: The left leg is in a cylinder cast. Her foot is warm and well perfused. She does have some pressure over the posterior aspect of her heel related to her cast. There is no wound or s ignificant skin irritation. NEUROLOGICAL: She is neurovascularly intact. IMPRESSION: Status post patellar tendon repair with cylinder cast placement. PLAN: The patient is waiting on a [facility] bed to open in [place]. At that point, s he can be discharged. She can weightbear as tolerated, but no knee flexion. Continue cast. We will trim the distal aspect of the cast to make her more comfortable. She asked about her lupus medicati ons. Her medications are ordered, but nonformulary. We will check on this.
[2018-03-30] MEDS: Gabapentin 300 MG CAP PO SCH (21:11)
[2018-03-30] MEDS: Zolpidem Tartrate 5 MG TAB PO PRN (21:54)
[2018-03-30] MEDS: traMADol HCl 50 MG TAB PO PRN (23:17)
[2018-03-31] MEDS: HYDROcodone/Acetaminophen 10/325 mg Tablet PO PRN ×5 (01:24→21:58)
[2018-03-31] MEDS: predniSONE 20 MG TAB PO SCH (08:07)
[2018-03-31] MEDS: Famotidine 20 MG TAB PO SCH ×2 (08:07→21:58)
[2018-03-31] MEDS: Amlodipine 10 MG TAB PO SCH (08:07)
[2018-03-31] MEDS: Lisinopril 10 MG TAB PO SCH (08:07)
[2018-03-31] MEDS: Diazepam 5 MG TAB PO SCH ×3 (08:07→21:58)
[2018-03-31] MEDS: Enoxaparin Sodium 40 MG/0.4 ML SYRINGE SC SCH (08:08)
[2018-03-31] MEDS: Ondansetron HCl/PF 4 MG/2 ML Vial IV PRN (16:03)
[2018-03-31] MEDS: Gabapentin 300 MG CAP PO SCH (21:58)
[2018-04-01] MEDS: HYDROcodone/Acetaminophen 10/325 mg Tablet PO PRN ×5 (02:10→23:19)
[2018-04-01] MEDS: Zolpidem Tartrate 5 MG TAB PO PRN ×2 (02:10→23:19)
[2018-04-01] MEDS: Ondansetron HCl/PF 4 MG/2 ML Vial IV PRN (02:15)
[2018-04-01] MEDS: Lisinopril 10 MG TAB PO SCH (09:04)
[2018-04-01] MEDS: Enoxaparin Sodium 40 MG/0.4 ML SYRINGE SC SCH (09:04)
[2018-04-01] MEDS: Amlodipine 10 MG TAB PO SCH (09:05)
[2018-04-01] MEDS: Famotidine 20 MG TAB PO SCH ×2 (09:05→19:30)
[2018-04-01] MEDS: Diazepam 5 MG TAB PO SCH ×3 (09:05→21:11)
[2018-04-01] MEDS: predniSONE 20 MG TAB PO SCH (09:05)
[2018-04-01] MEDS: Gabapentin 300 MG CAP PO SCH (21:10)
[2018-04-02] MEDS: HYDROcodone/Acetaminophen 10/325 mg Tablet PO PRN ×4 (03:31→20:04)
[2018-04-02] MEDS: traMADol HCl 50 MG TAB PO PRN ×3 (06:23→17:51)
[2018-04-02] MEDS: Famotidine 20 MG TAB PO SCH ×2 (09:10→20:07)
[2018-04-02] MEDS: predniSONE 20 MG TAB PO SCH (09:11)
[2018-04-02] MEDS: Diazepam 5 MG TAB PO SCH ×3 (09:11→20:06)
[2018-04-02] MEDS: Lisinopril 10 MG TAB PO SCH (09:11)
[2018-04-02] MEDS: Amlodipine 10 MG TAB PO SCH (09:11)
[2018-04-02] MEDS: Enoxaparin Sodium 40 MG/0.4 ML SYRINGE SC SCH (09:12)
[2018-04-02 20:04] VITALS: TEMP 98
[2018-04-02] MEDS: Gabapentin 300 MG CAP PO SCH (20:05)
[2018-04-02] MEDS: Aspirin 81 mg Enteric Coated Tablet PO SCH (20:07)
[2018-04-02] MEDS: Zolpidem Tartrate 5 MG TAB PO PRN (22:39)
[2018-04-03] MEDS: HYDROcodone/Acetaminophen 10/325 mg Tablet PO PRN ×2 (03:37→07:50)
[2018-04-03] MEDS: traMADol HCl 50 MG TAB PO PRN (06:39)
[2018-04-03] MEDS: Amlodipine 10 MG TAB PO SCH (07:39)
[2018-04-03] MEDS: Diazepam 5 MG TAB PO SCH (07:41)
[2018-04-03] MEDS: Famotidine 20 MG TAB PO SCH (07:41)
[2018-04-03] MEDS: Aspirin 81 mg Enteric Coated Tablet PO SCH (07:41)
[2018-04-03] MEDS: Lisinopril 10 MG TAB PO SCH (07:41)
[2018-04-03] MEDS: predniSONE 20 MG TAB PO SCH (07:42)
[2018-04-03] MEDS: Enoxaparin Sodium 40 MG/0.4 ML SYRINGE SC SCH (07:42)
[2018-04-03 07:44] VITALS: BP 152/90
== END 2018-04-03 10:16 | DRG 502 ==
LOC: ERS 08:34 → SURG A 10:30 → T4-B 13:25
PROVIDERS: ADMIT Orthopaedic Surgery; ATTEND Orthopaedic Surgery
PROC: 0LQR0ZZ Repair Left Knee Tendon, Open Approach (ICD-10-PCS; principal; 2018-03-28)
DX: S76.112A Strain of left quadriceps muscle, fascia and tendon, initial encounter (principal); I10 Essential (primary) hypertension; I73.00 Raynaud's syndrome without gangrene; G62.9 Polyneuropathy, unspecified; R29.6 Repeated falls; F32.9 Major depressive disorder, single episode, unspecified; M19.90 Unspecified osteoarthritis, unspecified site; M32.9 Systemic lupus erythematosus, unspecified; Z86.73 Personal history of transient ischemic attack (TIA), and cerebral infarction without residual deficits; Z79.52 Long term (current) use of systemic steroids; Z79.899 Other long term (current) drug therapy; W19.XXXA Unspecified fall, initial encounter
CPT/HCPCS: 36415; 80053; 85025; 85610; 85730; 96374; G8978-GP-CL; G8979-GP-CJ; J0670; J1100; J1650; J1720; J1885; J2001; J2250; J2405; J2704; J3010; J7506

== ENCOUNTER 2022-05-23 12:31 | Outpatient (CLI) | payer MEDICARE, MEDICAID | END 2022-05-23 12:32 | disposition home or self-care (01) | LOC: TBSIIMAG 12:31 | PROVIDERS: ATTEND Neurological Surgery | DX: S22.089A Unspecified fracture of T11-T12 vertebra, initial encounter for closed fracture (principal); S22.039A Unspecified fracture of third thoracic vertebra, initial encounter for closed fracture | CPT/HCPCS: 72070 ==